=== PATIENT | male | born 1960 | race Caucasian/White ===

== ENCOUNTER 2021-07-01 08:36 | Emergency (ER) | payer BC ==
[~2021-07-01] VITALS: Ht 180.3 cm; Wt 77.1 kg
[~2021-07-01 08:36] MED LIST: ADULT LOW DOSE81 MG PO; ADVIL200 M3 PO; BIAXIN 500 MG500 M1 PO; FISH OIL 1,001000 M2 PO; FLEXERIL PO; HYDROCODON-ACE1 EAC7 PO; NORCO 10-325 T1 EACH PO; NORCO 5-325 TA1 EACH PO; PHYTOMULTI TAB1 EACH PO; ZYRTEC10 MG PO; [UNRECOGNIZED DRUG - OTHER] PO
[2021-07-01] MEDS ORDERED: DOXYCYCLINE 10100 M2 (08:47)
[2021-07-01] MEDS ORDERED: ACYCLOVIR 200200 MG (08:47)
[2021-07-01] MEDS ORDERED: NORCO5 PO (09:48)
[2021-07-01] MEDS ORDERED: ACYCLOVIR15 GM OPHTHALMIC (09:48)
[2021-07-01 09:53] VITALS: BP 134/75
== END 2021-07-01 09:54 | disposition home or self-care (01) ==
LOC: M.ERS 08:36
DX: B02.30 Zoster ocular disease, unspecified (principal); Z79.899 Other long term (current) drug therapy